=== PATIENT | female | born 1940 | race Caucasian/White ===

== ENCOUNTER 2018-02-20 10:11 | Emergency (ER) | payer MEDICARE, SELFPAY ==
[2018-02-20 10:23] VITALS: BP 185/112; PULSE 66; RESP 16; TEMP 36.4; O2SAT 100
--- NOTE | 2018-02-20 10:54 | ED.RECABL ---
HPI - Recheck/Abnormal Lab/Rx General Chief Complaint: Recheck/Abnormal Lab/Rx Stated Complaint: Wants bloodwork/levels checked Time Seen by Provider: 02/20/18 10:48 Source: patient Mode of arrival: ambulatory Limitations: no limitations History of Present Illness HPI narrative: Patient is a amador 77-year-old female who presents all of really for an INR check. She is taking care of her ailing sister. She is on Coumadin for atrial fibrillation she had an ablation 2 years ago which she says is working. She has not had any bleeding problems she has no chest pain or shortness of breath. She is under quite a bit of stress at the moment with her sister. She gets her INR checked once a month. She does not anticipate being here on much longer but it is hard to tell. MD complaint: abnormal lab Related Data Home Medications Medication Instructions Recorded Confirmed losartan 100 mg PO DAILY 02/20/18 02/20/18 warfarin 02/20/18 Review of Systems Review of Systems GENERAL: Denies chills,fever HEENT: Denies throat pain RESPIRATORY: Denies dyspnea, cough, wheezing CARDIOVASCULAR: Denies chest pain, palpitations GASTROINTESTINAL: Denies nausea, vomiting MUSCULOSKELETAL: Denies extremity pain, injury SKIN: No rash, no laceration, no pruritus NEUROLOGIC: Denies weakness, dizziness, headache, numbness 8 point review of systems is negative except for those stated above and HPI PFSH Medical History Atrial fibrillation (Acute) Social History Smoking Status: Never smoker Exam Initial Vital Signs Initial Vital Signs: Vital Signs Temperature 97.6 F 02/20/18 10:23 Pulse Rate 66 02/20/18 10:23 Respiratory Rate 16 02/20/18 10:23 Blood Pressure 185/112 H 02/20/18 10:23 Pulse Oximetry 100 02/20/18 10:23 GENERAL: Well-appearing, well-nourished and in no acute distress. HEENT: Head atraumatic,EOMI, pupils reactive CARDIOVASCULAR: Regular rate and rhythm without murmurs, rubs or gallops. RESPIRATORY: Breath sounds equal bilaterally, no wheezes rales or rhonchi. ABDOMEN: Soft, nontender. Normoactive bowel sounds all 4 quadrants. No guarding or rebound. EXTREMITIES: Normal range of motion, no clubbing or edema. Neurovascularly intact NEUROLOGICAL: Alert and oriented x4.Normal gait and speech SKIN: Warm, dry, no laceration, no petechiae, no rashes or lesions. Course Orders Ordered: ED Orders 02/20/18 10:37 PT [Prothrombin Time INR] Stat Vital Signs - 8 hr 02/20/18 10:23 02/20/18 11:20 Temperature 97.6 F Pulse Rate 66 71 Respiratory Rate 16 12 Blood Pressure 185/112 H 163/101 H Pulse Oximetry 100 100 MDM - Recheck/Abnormal Lab/Rx Lab Data Lab Results 02/20/18 Range/Units 10:37 PT 30.8 H (10.1-12.7) SECONDS INR 2.6 H (0.9-1.3) Discharge Plan Departure Patient Disposition: Home Clinical Impression: International normalized ratio (INR) greater than 2 Discharge Date/Time: 02/20/18 11:20 Interventions: ED Discharge Assessment Last Done: 02/20/18 11:20 Instructions: Warfarin Activity Restrictions/Additional Instructions: *You have been diagnosed with Coumadin checked *What to do: INR 2.6 *Continue to take medications as directed *Follow up with your primary care provider in 2-3 days *Return to ER if you should have any new, worsening or concerning symptoms Prescriptions: No Action warfarin 5 mg tablet RF: 0 losartan 100 mg tablet 100 mg PO DAILY RF: 0
[2018-02-20 11:00] LABS: INR 2.6 (0.9-1.3); Prothrombin Time 30.8 SECONDS (10.1-12.7)
[2018-02-20 11:20] VITALS: BP 163/101; PULSE 71; RESP 12; O2SAT 100
== END 2018-02-20 11:20 | disposition home or self-care (01) ==
PROVIDERS: Emergency Provider Emergency Medicine
DX: R79.1 Abnormal coagulation profile (principal); Z79.01 Long term (current) use of anticoagulants
CPT/HCPCS: 36415; 85610; 99282; 99283

== ENCOUNTER 2024-01-22 13:44 | Emergency (ER) | payer MEDICARE, SELFPAY ==
[2024-01-22 13:52] VITALS: BP 136/70; PULSE 80; RESP 16; TEMP 36.3; O2SAT 97; BMI 32.8
--- NOTE | 2024-01-22 14:23 | DI.CT.S_ITS ---
PROCEDURE: CT CERVICAL SPINE WO CON INDICATIONS: fall TECHNIQUE: Noncontrast 3 mm thick sections acquired from the skull base to the T4 level. Sagittal and coronal reformats were then constructed. For radiation dose reduction, the following was used: automated exposure control, adjustment of mA and/or kV according to patient size. COMPARISON: None. FINDINGS: Image quality: Excellent. Bones: No fractures or dislocations. Diffuse cervical spondylitic change. Findings include multilevel bilateral bony foraminal narrowing. Visualized superior ribs are intact. Soft tissues: Prevertebral soft tissues are normal in thickness. No paravertebral hematomas. No apical pneumothoraces. IMPRESSION: No displaced fracture or traumatic subluxation. Cervical spondylosis. Dictated by: Malcolm Zavaleta M.D. on 01/22/2024 at 14:54 Approved by: Malcolm Zavaleta M.D. on 01/22/2024 at 14:58
--- NOTE | 2024-01-22 14:23 | DI.CT.S_ITS ---
PROCEDURE: CT HEAD/BRAIN WO CON INDICATIONS: fall TECHNIQUE: Noncontrast 4.5 mm thick angled axial sections acquired from the foramen magnum to the vertex, with coronal and sagittal reformats. For radiation dose reduction, the following was used: automated exposure control, adjustment of mA and/or kV according to patient size. COMPARISON: None. FINDINGS: Image quality: Diagnostic. CSF spaces: Basal cisterns are patent. No extra-axial fluid collections. The ventricles are symmetric in size and shape. Brain: No intracranial bleeds or masses. There is cerebral volume loss for age, with resultant ventricular and sulcal prominence. There are periventricular and deep white matter chronic small vessel ischemic changes. There is intracranial internal carotid artery atherosclerosis. Skull and face: Calvarium and visualized facial bones appear intact, without suspicious lesions. Sinuses: Visualized sinuses and mastoids are clear. IMPRESSION: No acute intracranial pathology. Dictated by: Malcolm Zavaleta M.D. on 01/22/2024 at 15:12 Approved by: Malcolm Zavaleta M.D. on 01/22/2024 at 15:12
[2024-01-22 15:45] VITALS: BP 176/78; PULSE 67; RESP 20; O2SAT 96
--- NOTE | 2024-01-22 18:57 | ED_ITS ---
HPI - Fall <Renzo Cevallos PA-C - Last Filed: 01/28/24 14:42> General Chief Complaint: Fall Stated Complaint: fall, head injury, no blood thinners Time Seen by Provider: 01/22/24 13:51 Source: patient Mode of arrival: Wheelchair History of Present Illness HPI Narrative: 83-year-old female presents to the ED status post a mechanical trip and fall which resulted in a scalp laceration. Bleeding has been controlled with pressure. No loss of consciousness. Patient is not on blood thinners. Patient denies back pain, neck pain. No symptoms including chest pain, shortness of breath, lightheadedness, dizziness prior to fall. Tetanus is up-to-date. Related Data Home Medications Medication Instructions Recorded Confirmed losartan 100 mg tablet 100 mg PO DAILY 02/20/18 02/20/18 amiodarone 200 mg tablet 200 mg PO DAILY 01/30/24 01/30/24 amlodipine 10 mg tablet 10 mg PO DAILY 01/30/24 01/30/24 fluoxetine 40 mg capsule 40 mg PO DAILY 01/30/24 01/30/24 hydrochlorothiazide 25 mg tablet 25 mg PO DAILY 01/30/24 01/30/24 rosuvastatin 40 mg tablet 40 mg PO DAILY 01/30/24 01/30/24 Allergies Allergy/AdvReac Type Severity Reaction Status Date / Time No Known Drug Allergies Allergy Verified 01/30/24 16:45 Review of Systems <Renzo Cevallos PA-C - Last Filed: 01/28/24 14:42> Constitutional Constitutional: Denies chills, Denies fatigue, Denies fever(s), Denies frequent falls, Denies lethargy and Denies weakness Eyes Eyes: Denies change in vision, Denies eye discharge, Denies irritation and Denies loss of vision ENT Ears, Nose, Mouth, and Throat: Denies change in voice, Denies dizziness, Denies neck pain, Denies sore throat and Denies throat swelling Cardiovascular Cardiovascular: Denies chest pain, Denies irregular heart rhythm, Denies lightheadedness, Denies palpitations, Denies dyspnea, Denies dyspnea on exertion and Denies orthopnea Respiratory Respiratory: Denies cough, Denies dyspnea, Denies dyspnea on exertion and Denies wheezing Gastrointestinal Gastrointestinal: Denies abdominal pain, Denies change in bowel habits, Denies diarrhea, Denies nausea and Denies vomiting Musculoskeletal Musculoskeletal: Denies neck pain and Denies numbness Integumentary/Breasts Skin/Breast: Denies pruritus, Denies erythema, Denies rash and Denies wounds Comments: Scalp injury Neurologic Neurologic: Denies behavioral changes, Denies confusion, Denies dizziness, Denies frequent falls, Denies loss of vision, Denies numbness and Denies weakness Psychiatric Psychiatric: Denies anxiety, Denies behavioral changes, Denies confusion, Denies depression, Denies homicidal ideation and Denies suicidal ideation Endocrine Endocrine: Denies fatigue, Denies flushing and Denies palpitations Hematologic/Lymphatic Hematologic/Lymphatic: Denies easy bruising Allergic/Immunologic Allergic/Immunologic: Denies urticaria, Denies throat swelling and Denies wheezing Patient History <Renzo Cevallos PA-C - Last Filed: 01/28/24 14:42> Medical History (Updated 01/22/24 @ 15:37 by Renzo Cevallos PA-C) Atrial fibrillation Social History Smoking Status: Never smoker Smoking Status: Never smoker alcohol intake frequency: 0-2 drinks per day Substance Use Type: does not use Exam <Renzo Cevallos PA-C - Last Filed: 01/28/24 14:42> Narrative Exam Narrative: Const General:?cooperative, healthy appearing and comfortable [facility] Head:? There is a 8 cm linear laceration to the scalp on the back, left side. Bleeding is controlled with pressure. Ears:?hearing grossly normal bilaterally Nose:?external nose normal Face and sinus:?normal facial exam and sinuses nontender Mouth:?oral mucosae normal Throat:?posterior oropharynx normal Eyes General:?appearance normal, both eyes and all related structures Neck Neck:?normal visual inspection and no lymphadenopathy noted Resp Effort & Inspection:?normal respiratory effort Auscultation:?clear to auscultation bilaterally Cardio Rate:?regular rate Rhythm:?regular rhythm Neuro General:?patient alert, patient awake and patient oriented x3 Initial Vital Signs Initial Vital Signs: Vital Signs Temperature 97.4 F L 01/22/24 13:52 Pulse Rate 80 01/22/24 13:52 Respiratory Rate 16 01/22/24 13:52 Blood Pressure 136/70 01/22/24 13:52 Pulse Oximetry 97 01/22/24 13:52 Oxygen Delivery Method Room Air 01/22/24 13:52 <Rona Burgess MD - Last Filed: 01/31/24 07:20> Initial Vital Signs Initial Vital Signs: Vital Signs Temperature 97.4 F L 01/22/24 13:52 Pulse Rate 80 01/22/24 13:52 Respiratory Rate 16 01/22/24 13:52 Blood Pressure 136/70 01/22/24 13:52 Pulse Oximetry 97 01/22/24 13:52 Oxygen Delivery Method Room Air 01/22/24 13:52 Procedures <Renzo Cevallos PA-C - Last Filed: 01/28/24 14:42> Laceration Repair Laceration 1: Site: scalp Size (cm): 8 Description: linear Depth: simple, single layer Pre-repair: wound explored, irrigated extensively and deep structures intact Skin layer closed with: tres Number of sutures: 12 Course <LU Valdovinos Last Filed: 01/28/24 14:42> Orders Ordered: ED Orders 01/22/24 14:23 CT cervical spine wo con Stat CT head/brain wo con Stat Vital Signs Vital signs: Vital Signs - 8 hr 01/22/24 13:52 01/22/24 15:45 Temperature 97.4 F L Pulse Rate 80 67 Respiratory Rate 16 20 Blood Pressure 136/70 176/78 H Pulse Oximetry 97 96 Oxygen Delivery Method Room Air Room Air <Rona Burgess MD - Last Filed: 01/31/24 07:20> Orders Ordered: ED Orders 01/22/24 14:23 CT cervical spine wo con Stat CT head/brain wo con Stat Vital Signs Vital signs: Vital Signs - 8 hr 01/22/24 13:52 01/22/24 15:45 Temperature 97.4 F L Pulse Rate 80 67 Respiratory Rate 16 20 Blood Pressure 136/70 176/78 H Pulse Oximetry 97 96 Oxygen Delivery Method Room Air Room Air MDM - Fall <LU Valdovinos Last Filed: 01/28/24 14:42> MDM Narrative Medical decision making narrative: 83-year-old female presents to the ED status post a mechanical trip and fall which resulted in a scalp laceration. Obtain CT head and CT C-spine. CT head with no acute intracranial pathology. CT C-spine shows no displaced fracture or traumatic subluxation. There is some cervical spondylosis. Laceration was irrigated, repaired with 12 tres. Wound care instructions, staple removal instructions discussed with patient. ED return precautions discussed with patient. Patient verbalized understanding. Medical records reviewed: Yes Discharge Plan Departure Patient Disposition: Home Clinical Impression: Laceration Instructions: DI for Laceration Repair of the Scalp, How to Prevent Falls Activity Restrictions/Additional Instructions: You were evaluated in the ED today for a head injury. Your CT scans were normal. Your scalp laceration was repaired with 12 tres. The tres will need to be removed in 7 days. You may go to your PCP's office, a walk-in clinic or return to the ED for staple removal. You may keep the wound clean and dry for the 1st 24 hours, following which you may rinse gently with soap and water. Please watch for signs of infection including worsening redness, pain, warmth, discharge, swelling. Return to the ED if you note any signs of infection. Prescriptions: No Action hydrochlorothiazide 25 mg tablet 25 mg PO DAILY fluoxetine 40 mg capsule 40 mg PO DAILY rosuvastatin 40 mg tablet 40 mg PO DAILY amlodipine 10 mg tablet 10 mg PO DAILY amiodarone 200 mg tablet 200 mg PO DAILY losartan 100 mg tablet 100 mg PO DAILY Referrals: Miscellaneous,[facility] [Primary Care Provider] - Stand Alone Forms: Patient Portal/API/Survey ED Sign-out <Rona Burgess MD - Last Filed: 01/31/24 07:20> Cosign ED Attending Ilda Attestation: I was immediately available in the department for consultation throughout this patient's visit. Rona Burgess MD
== END 2024-01-22 15:44 | disposition home or self-care (01) ==
PROVIDERS: Emergency Provider Student in an Organized Health Care Education/Training Program
DX: S01.01XA Laceration without foreign body of scalp, initial encounter (principal); W01.0XXA Fall on same level from slipping, tripping and stumbling without subsequent striking against object, initial encounter
CPT/HCPCS: 12004; 70450; 72125; 99281; 99284